=== PATIENT | female | born 1930 | race Two or more races ===

== ENCOUNTER 2018-05-23 11:10 | Inpatient (IN) | payer OTHER, MEDICAID ==
[~2018-05-23] VITALS: Ht 157.5 cm; Wt 65.3 kg
[2018-05-23] MEDS ORDERED: SODIUM CHLORIDE 0.9% 1,000 ML IV ONE ×2 (11:17)
[2018-05-23 12:34] LABS: Basophils # (auto) 0 uL; Basophils % (auto) 0.9 % (0.0-2.0); Eosinophils # (auto) 0.4 uL; Eosinophils % (auto) 6.9 % (0.0-7.0); Hematocrit 31.1 % (36.0-46.0); Hemoglobin 10.3 g/dL (12.2-16.2); Lymphocytes # (auto) 2.3 uL; Lymphocytes % (auto) 42.4 % (10.0-50.0); Mean Corpuscular Hemoglobin 33.4 pg (28.0-32.0); Mean Corpuscular Volume 101.3 fL (80.0-100.0); Monocytes # (auto) 0.6 uL; Neutrophils # (auto) 2.1 uL; Neutrophils % (auto) 38.8 % (37.0-80.0); Platelet Count (auto) 185 10^3/uL (140-450); Red Blood Cells 3.07 10^6/uL (4.0-5.20); Red Cell Distribution Width 18.3 % (11.8-14.3); White Blood Cell 5.4 10^3/uL (4.4-10.8)
[2018-05-23 12:53] LABS: Calcium 8.1 mg/dL (8.5-10.1); Potassium 3.9 mmol/L (3.5-5.1)
[2018-05-23 12:56] LABS: Partial Thromboplastin Time 26.6 sec (23.78-33.04); Prothrombin Time 10.7 sec (9.27-12.13)
[2018-05-23 12:58] LABS: BUN/Creatinine Ratio 31.4; Bilirubin, Total 0.6 mg/dL (0.2-1.0); Total Protein 6.3 g/dL (6.4-8.2)
[2018-05-23 13:21] LABS: Urine Bacteria NONE SEEN /hpf (None Seen); Urine Blood Negative /uL (Negative); Urine Mucus FEW (None Seen); Urine Specific Gravity 1.013 (1.001-1.035); Urine WBC 5 /hpf (0 - 5)
[2018-05-23] MEDS ORDERED: PANTOPRAZOLE 40 MG/10 ML VIAL IV ONE ×2 (14:00→14:45)
[2018-05-23] MEDS ORDERED: TEMAZEPAM 15 MG CAP PO PRN (14:45)
[2018-05-23] MEDS ORDERED: cefTRIAXone 1GM/50ML D5W 50 ML IV ONE (14:45)
[2018-05-23] MEDS ORDERED: LORazepam 0.5 MG TAB PO PRN (14:45)
[2018-05-23] MEDS ORDERED: HYDROcodone-ACET 5/325MG TAB PO PRN (14:45)
[2018-05-23] MEDS ORDERED: NITROGLYCERIN 0.4 MG SL TAB SL PRN (14:45)
[2018-05-23] MEDS ORDERED: MORPHINE SULFATE 4 MG/ML SYR/VIAL IV PRN ×2 (14:45)
[2018-05-23] MEDS ORDERED: ACETAMINOPHEN 500 MG TAB PO PRN (14:45)
[2018-05-23] MEDS ORDERED: PROMETHAZINE HCL 25 MG/ML 1ML IV PRN (14:45)
[2018-05-23] MEDS: SODIUM CHLORIDE 0.9% 1,000 ML IV SCH ×2 (15:46→22:36)
[2018-05-23] MEDS ORDERED: ALBUTEROL SULF 2.5 MG/0.5ML(0.5%) NEB SOLN NEB PRN (18:15)
[2018-05-23] MEDS: metroNIDAZOLE 500MG/100ML 100 ML IV SCH (18:18)
[2018-05-23 19:04] VITALS: BP 159/74
--- NOTE | 2018-05-23 20:00 | NUR ---
[facility] admit from [facility] to Tele[facility] unit after SBAR received. Patient oriented to Santa wheeler RN, unit, room, bed, and unit policies regarding patient care and visiting hours. Patient now on continuous telemetry monitoring, tele box # and telemetry reading on arrival to unit is SR83. Patient weighed by bedscale. PT very sleepy. pt eyes open but non verbal.
[2018-05-23 20:14] LABS: Hematocrit 28.9 % (36.0-46.0); Hemoglobin 9.8 g/dL (12.2-16.2)
[2018-05-23 22:00] VITALS: BP 161/71
[2018-05-23] MEDS: PANTOPRAZOLE 40 MG/10 ML VIAL IV SCH (22:57)
[2018-05-23] MEDS ORDERED: SUCR1TAB PO (23:07)
--- NOTE | 2018-05-23 23:10 | NUR ---
CODE ASSIST CALLED. PT NOT RESPONDING. DID SEVERAL STERNAL RUBS WITHOUT THE PT WAKING UP. PT BLOOD SUGAR WAS 109. PT PLACED ON 2L O2. VITAL SIGNS BP 182/146, HR 90, RR 18, TEMP 97.7, O2 99% MARBLE SUPERVISOR, LOAN AND CHIEF CUSTOMER OFFICER IMELDA ARE AWARE AND IN THE ROOM.
--- NOTE | 2018-05-23 23:17 | NUR ---
VITAL SIGNS TAKEN AGAIN. BP 196/62. HR 84, O2 100%, RR 21, TEMP 07.9 NEW ORDERS PER HOSPITALIST, D[place] HYDRALAZINE GIVEN. HEAD CT AND NEURO CONSULT ORDERED
--- NOTE | 2018-05-23 23:20 | NUR ---
PT DOWN TO CT.
[2018-05-23] MEDS: hydrALAZINE HCL 20 MG/ML VL IV PRN (23:23)
[2018-05-24] VITALS (7 sets, daily range): BP systolic 125–172; BP diastolic 48–97
[2018-05-24] MEDS: ALBUTEROL SULF 2.5 MG/0.5ML(0.5%) NEB SOLN NEB SCH ×5 (00:05→22:55)
[2018-05-24] MEDS: IPRATROPIUM BROM 0.5 MG/2.5ML INH SOL NEB SCH ×5 (00:05→22:55)
[2018-05-24] MEDS: metroNIDAZOLE 500MG/100ML 100 ML IV SCH ×5 (00:49→23:54)
[2018-05-24 01:03] LABS: Hematocrit 31.4 % (36.0-46.0); Hemoglobin 10.4 g/dL (12.2-16.2)
--- NOTE | 2018-05-24 01:05 | NUR ---
RADIOLOGY DO ARANZA CALLED PT HAS SMALL BLEED. CALLED AND NOTIFIED HOSPITALIST, STANISLAW, MAILROOM MESSENGER IMELDA, AND POLICE RADIO DISPATCHER, LOAN.
[2018-05-24] MEDS ORDERED: LISI-646 PO (01:20)
[2018-05-24] MEDS ORDERED: CETI10TA80 PO (01:20)
[2018-05-24] MEDS ORDERED: NAPR-476 PO (01:20)
[2018-05-24] MEDS ORDERED: OMEP20TA PO (01:20)
[2018-05-24] MEDS ORDERED: ASPI81TA27 PO (01:20)
[2018-05-24] MEDS ORDERED: ALEN1TAB32 PO (01:20)
[2018-05-24] MEDS ORDERED: FERR-20 PO (01:20)
--- NOTE | 2018-05-24 02:40 | NUR ---
PT VS BP 125/48, HR 94, RR 21, O2 100%. TEMP 98
--- NOTE | 2018-05-24 05:03 | NUR ---
TALKED TO HOSPITALISTSATNISLAW. PT IS ACCEPTED [facility] WITH [facility]. RED. BUT THERE IS NO BED. PT TO REMAIN ON FLOOR TELE. NOTIFIED EVALUATION ADVISORKELVIN.
[2018-05-24 05:42] LABS: Basophils # (auto) 0.1 uL; Eosinophils # (auto) 0.1 uL; Hemoglobin 9.8 g/dL (12.2-16.2); Lymphocytes # (auto) 1.6 uL; Monocytes # (auto) 0.8 uL; Monocytes % (auto) 12.4 % (0.0-12.0); Nucleated Red Blood Cells % 0.1 %
[2018-05-24 05:49] LABS: Eosinophils % (auto) 2.4 % (0.0-7.0); Hematocrit 29.9 % (36.0-46.0); Lymphocytes % (auto) 25.3 % (10.0-50.0); Mean Corpuscular Hemoglobin 33.9 pg (28.0-32.0); Mean Corpuscular Volume 102.9 fL (80.0-100.0); Neutrophils # (auto) 3.7 uL; Neutrophils % (auto) 58.9 % (37.0-80.0); Platelet Count (auto) 174 10^3/uL (140-450); Potassium 3.4 mmol/L (3.5-5.1); White Blood Cell 6.2 10^3/uL (4.4-10.8)
[2018-05-24 05:58] LABS: Albumin 2.6 g/dL (3.4-5.0); BUN/Creatinine Ratio 32.9; Bilirubin, Total 0.5 mg/dL (0.2-1.0); Calcium 7.7 mg/dL (8.5-10.1); Total Protein 5.5 g/dL (6.4-8.2)
[2018-05-24] MEDS: SODIUM CHLORIDE 0.9% 1,000 ML IV SCH ×4 (06:14→23:23)
--- NOTE | 2018-05-24 08:00 | NUR ---
RECEIVED PT RESTING IN BED, PT NOT OPENING HER EYES, PT IS MOANING AND MOVING TO TOUCH, FRAGA DRAINING TO GRAVITY, CALL LIGHT WITH IN REACH, BED ALARM ON, PT CLOSED TO THE NURSE STATION, WILL CONTINUE TO MONITOR PT.
[2018-05-24] MEDS: PANTOPRAZOLE 40 MG/10 ML VIAL IV SCH ×2 (08:59→23:13)
[2018-05-24] MEDS: cefTRIAXone 1GM/50ML D5W 50 ML IV SCH (08:59)
--- NOTE | 2018-05-24 09:22 | NUR ---
PAGED JEWEL BEARING DRILLER TO INFORM THAT THERE IS A CLEARING DISTRIBUTION CLERK CONSULT TO TRANSFER PT TO HIGHER LEVEL OF CARE, THAT PT WAS ACCE[facility] TO [facility] WITH [facility]. RED. BUT THERE IS NO BED. AWAITING CALL BACK.
--- NOTE | 2018-05-24 09:40 | NUR ---
RECEIVED CALL BACK FROM TAM/ YOGHURT MAKER, YOGHURT MAKER INFORMED ON THE B2B MANAGED SERVICE SALES EXEC CONSULT FOR PT TO BE TRANSFER TO HIGHER LEVEL OF CARE. TAM WILL FOLLOW UP ON THE TRANSFER.
--- NOTE | 2018-05-24 11:45 | NUR ---
PHONE CALL MADE TO [facility]... STILL AWAITING BED.
[2018-05-24] MEDS: hydrALAZINE HCL 20 MG/ML VL IV PRN (11:56)
--- NOTE | 2018-05-24 11:59 | NUR ---
DR. PADILLA / GI AT BED SIDE TO SEE PT. PT IS MORE ALERT, PT HAS SLURRED SPEECH, RESPONDING YES AND NO QUESTIONS,
--- NOTE | 2018-05-24 12:15 | NUR ---
DR. GAFFNEY AT BED SIDE TO SEE PT, EDWIN FROM [facility] CALLED AND SPOKE TO DR. GAFFNEY REGARDING PT'S TRANSFER.
--- NOTE | 2018-05-24 12:20 | NUR ---
CALLED AND SPOKE TO PERRY REY/PT'S FRIEND AND ACCOUNTS RECEIVABLE REPRESENTATIVE. PER PERRY THERE IS NO FAMILY CONTACT INFORMATION AVAILABLE, PT MOVED IN WITH PERRY WHEN PT WAS WELL, PERRY INFORMED THAT PT WILL BE TRANSFER TO [facility] SOON THERE IS A BED AVAILABLE.
--- NOTE | 2018-05-24 19:15 | NUR ---
Opening Shift Note Received report from sindi Mahan RN. Assumed care of patient, awake but lethargic and oriented to self only. No S/S of distress/SOB or pain. Instructed on POC and to call for assist PRN, will continue to monitor for changes Q1hr and PRN. Bed placed in lowest position, bed alarm turned on and call light within reach.
[2018-05-24] MEDS ORDERED: IOHEXOL 350 MG/ML 100ML IJ ONE (20:41)
--- NOTE | 2018-05-24 21:03 | NUR ---
Patient was taken to radiology for Head CT procedure.
--- NOTE | 2018-05-24 21:30 | NUR ---
Patient return to floor from Radiology.
[2018-05-24] MEDS: DONEPEZIL HYDROCHLORIDE 5 MG TAB PO SCH (23:13)
[2018-05-25 05:48] VITALS: BP 142/67
[2018-05-25] MEDS: metroNIDAZOLE 500MG/100ML 100 ML IV SCH ×3 (07:04→17:14)
[2018-05-25] MEDS: ALBUTEROL SULF 2.5 MG/0.5ML(0.5%) NEB SOLN NEB SCH ×3 (07:30→18:22)
[2018-05-25] MEDS: IPRATROPIUM BROM 0.5 MG/2.5ML INH SOL NEB SCH ×3 (07:30→18:22)
[2018-05-25] MEDS: SODIUM CHLORIDE 0.9% 1,000 ML IV SCH ×3 (07:43→11:59)
[2018-05-25 08:00] VITALS: BP 147/61
--- NOTE | 2018-05-25 08:00 | NUR ---
RECEIVED PT RESTING SITTING ON BED, CALL LIGHT WITHIN REACH, PT RECEIVING A BREATHING TREATMENT, PT FOLLOWING DIRECTIONS, PT IS AAO X 2, PT ANSWERING QUESTIONS, PT EDUCATED TO STAY IN BED, AND USE CALL LIGHT FOR HELP, BED ALARM ON, WILL CONTINUE TO MONITOR PT.
--- NOTE | 2018-05-25 09:43 | NUR ---
MACHINE CELL TUBER DR. Rick GAFFNEY
--- NOTE | 2018-05-25 09:45 | NUR ---
DR. GAFFNEY AT BED SIDE TO SEE PT,
--- NOTE | 2018-05-25 09:59 | NUR ---
CALLED AND SPOKE TO TAM/ PROGRAMMER ENGINEERING AND SCIENTIFIC PER DR. GAFFNEY'S REQUEST TO INFORM THAT PT'S PLAN OF CARE IS STILL TO TRANSFER TO [facility]. PROGRAMMER ENGINEERING AND SCIENTIFIC WILL CONTINUE TO WORK ON THE TRANSFER.
[2018-05-25] MEDS: PANTOPRAZOLE 40 MG/10 ML VIAL IV SCH ×2 (10:01→21:54)
[2018-05-25] MEDS: cefTRIAXone 1GM/50ML D5W 50 ML IV SCH (10:01)
[2018-05-25 12:00] VITALS: BP 136/55
[2018-05-25 17:00] VITALS: BP 162/64
[2018-05-25] MEDS: hydrALAZINE HCL 20 MG/ML VL IV PRN (17:15)
[2018-05-25 18:43] VITALS: BP 113/46
--- NOTE | 2018-05-25 19:10 | NUR ---
Opening Shift Note Received report from sindi Mahan RN. Assumed care of patient, awake and oriented to self and place. Caregiver friends at bedside, Terrie and Amanda. No S/S of distress/SOB or pain. Instructed on POC and to call for assist PRN, will continue to monitor for changes Q1hr and PRN. Bed placed in lowest position, bed alarm turned on and call light within reach. Patient is still waiting a bed from [facility].
--- NOTE | 2018-05-25 20:45 | NUR ---
LAURA FROM [facility] CALLED TO VERIFY PATIENT'S STATUS.
[2018-05-25] MEDS: DONEPEZIL HYDROCHLORIDE 5 MG TAB PO SCH (21:55)
[2018-05-25 22:03] VITALS: BP 125/51
--- NOTE | 2018-05-25 23:25 | NUR ---
RECEIVED A CALL FROM LAURA OF [facility] , STATES THAT A BED FOR PATIENT IS READY.
--- NOTE | 2018-05-25 23:41 | NUR ---
LAURA FROM [facility] STATES THAT PATIENT WILL BE GOING TO UN[address] ROOM 6 BED 1. RECEIVING MD IS LISSY BROOKS, NEURO SURGEON
[2018-05-26] MEDS: ALBUTEROL SULF 2.5 MG/0.5ML(0.5%) NEB SOLN NEB SCH (00:12)
[2018-05-26] MEDS: IPRATROPIUM BROM 0.5 MG/2.5ML INH SOL NEB SCH (00:12)
[2018-05-26] MEDS: metroNIDAZOLE 500MG/100ML 100 ML IV SCH (00:41)
--- NOTE | 2018-05-26 03:50 | NUR ---
JULIAN FROM [facility] CALLED AND STATES THAT EXPECTED TIME OF ARRIVAL IS 30 MIN.
[2018-05-26] MEDS: SODIUM CHLORIDE 0.9% 1,000 ML IV SCH (04:02)
--- NOTE | 2018-05-26 04:27 | NUR ---
REPORT GIVEN TO HERNÁN GEORGE RN
--- NOTE | 2018-05-26 04:35 | NUR ---
Pt being trans to another hosp Order obtained for transfer [place] to [facility]. Report called/given to HERNÁN GEORGE. Report given to EMS transport team. Medication reconciliation form completed and copy given to patient. Transported via [facility] along with copied chart and imaging films/disk and all personal belongings. No distress noted on time of departure. Family notified of destination and room number, verbalized understanding.
[2018-05-26 09:23] LABS: Folate (Folic Acid) 15.78 ng/mL (5.38-24)
== END 2018-05-26 04:35 | disposition short-term general hospital (02) | DRG 64 ==
LOC: ER 11:10 → EDBD 11:10 → TELE 14:49 → EAST 19:30 → TELE-CENTR 19:41
PROVIDERS: ADMIT Internal Medicine; ATTEND Internal Medicine
DX: I60.9 Nontraumatic subarachnoid hemorrhage, unspecified (principal); G93.41 Metabolic encephalopathy; K57.31 Diverticulosis of large intestine without perforation or abscess with bleeding; E87.0 Hyperosmolality and hypernatremia; E87.1 Hypo-osmolality and hyponatremia; F02.80 Dementia in other diseases classified elsewhere, unspecified severity, without behavioral disturbance, psychotic disturbance, mood disturbance, and anxiety; I10 Essential (primary) hypertension; J44.9 Chronic obstructive pulmonary disease, unspecified; D64.9 Anemia, unspecified; F17.200 Nicotine dependence, unspecified, uncomplicated; G30.9 Alzheimer's disease, unspecified; R73.9 Hyperglycemia, unspecified; N28.1 Cyst of kidney, acquired; Z79.899 Other long term (current) drug therapy
CPT/HCPCS: 36415; 36600; 51702; 70450; 70496; 71045; 74176; 76775; 80053; 81001; 82270; 82378; 82607; 82746; 82805; 82962; 83605; 83880; 84443; 84484; 85014; 85018; 85025; 85045; 85610; 85652; 85730; 86141; 86850; 86900; 86901; 87040; 93005; 94640; 96361; 96374; 96375; C9113; G0378; J0696; J3490

== ENCOUNTER 2019-08-20 20:00 | Inpatient (IN) | payer MEDICARE, MEDICAID ==
[~2019-08-20] VITALS: Ht 157.5 cm; Wt 62.6 kg
[~2019-08-20 20:00] MED LIST: ALEN1TAB32 PO; ASPI-404 PO; CETI10TA80 PO; FERR-20 PO; LISI-646 PO; NAPR-476 PO; OMEP20TA PO; SUCR1TAB PO
[2019-08-20 20:54] LABS: Basophils # (auto) 0.1 10 ^3/uL (0-0.2); Eosinophils # (auto) 0.5 10 ^3/uL (0-0.8); Eosinophils % (auto) 5.6 % (0.0-7.0); Hemoglobin 13.6 g/dL (12.2-16.2); Monocytes # (auto) 1.1 10 ^3/uL (0-1.3)
[2019-08-20 20:56] LABS: Basophils % (auto) 0.7 % (0.0-2.0); Lymphocytes # (auto) 2.3 10 ^3/uL (0.4-5.4); Lymphocytes % (auto) 26.9 % (10.0-50.0); Mean Corpuscular Hemoglobin 34.5 pg (28.0-32.0); Mean Corpuscular Volume 101.6 fL (80.0-100.0); Neutrophils # (auto) 4.6 10 ^3/uL (1.6-8.6); Neutrophils % (auto) 53.8 % (37.0-80.0); Platelet Count (auto) 245 10^3/uL (140-450); Red Blood Cells 3.93 10^6/uL (4.0-5.20); Red Cell Distribution Width 15.5 % (11.8-14.3); White Blood Cell 8.5 10^3/uL (4.4-10.8)
[2019-08-20] MEDS ORDERED: SODIUM CHLORIDE 0.9% 500 ML IV ONE (21:00)
[2019-08-20 21:11] LABS: Albumin 2.7 g/dL (3.4-5.0); Anion Gap 9 (5-15); Blood Urea Nitrogen 13 mg/dL (7-18); Calcium 8.5 mg/dL (8.5-10.1); Carbon Dioxide 21 mmol/L (21-32); Chloride 102 mmol/L (98-107); Glucose 142 mg/dL (74-106); Magnesium 2.4 mg/dL (1.6-2.6); Sodium 132 mmol/L (136-145)
[2019-08-20 21:17] LABS: Alanine Aminotransferase 42 U/L (13-56); Alkaline Phosphatase 612 U/L (45-117); Aspartate Aminotransferase 30 U/L (15-37); BUN/Creatinine Ratio 17.8; Bilirubin, Total 0.8 mg/dL (0.2-1.0); GFR African American 97 mL/min; GFR Non-African American 80 mL/min; Total Protein 6.7 g/dL (6.4-8.2)
[2019-08-20 22:43] LABS: Urine Bacteria NONE SEEN /hpf (None Seen); Urine Blood Negative /uL (Negative); Urine Specific Gravity 1.005 (1.001-1.035); Urine WBC <1 /hpf (0 - 5)
[2019-08-21] MEDS ORDERED: SODIUM CHLORIDE 0.9% 1,000 ML IV SCH (02:27)
[2019-08-21] MEDS ORDERED: HYDROcodone-ACET 5/325MG TAB PO PRN (02:30)
[2019-08-21] MEDS ORDERED: MORPHINE SULF INJ 2 MG/ML SYRINGE 1ML IV PRN (02:30)
[2019-08-21] MEDS ORDERED: DOCUSATE SOD 100 MG CAP PO PRN (02:30)
[2019-08-21] MEDS ORDERED: ONDANSETRON HCL 4 MG/2 ML VIAL IV PRN (02:30)
[2019-08-21] MEDS ORDERED: ACETAMINOPHEN 325 MG TAB PO PRN (02:30)
[2019-08-21 04:13] VITALS: BP 134/53
--- NOTE | 2019-08-21 04:24 | NUR ---
PT UNABLE TO CONFIRM LIST OF MEDICATIONS PROVIDED. PATIENT IS CONFUSED AT THIS TIME AND UNABLE TO CONFIRM LIST OF MEDICATIONS OR PHARMACY. HOOP MAKER HELPER MACHINE RN INFORMED.
[2019-08-21 04:30] VITALS: BP 131/58
[2019-08-21 09:00] VITALS: BP 132/67
[2019-08-21 09:00] LABS: Basophils # (auto) 0.1 10 ^3/uL (0-0.2); Basophils % (auto) 0.9 % (0.0-2.0); Eosinophils # (auto) 0.6 10 ^3/uL (0-0.8); Eosinophils % (auto) 7.3 % (0.0-7.0); Hematocrit 42.9 % (36.0-46.0); Hemoglobin 14.3 g/dL (12.2-16.2); Lymphocytes # (auto) 2.8 10 ^3/uL (0.4-5.4); Lymphocytes % (auto) 33.4 % (10.0-50.0); Mean Corpuscular Hemoglobin 34.1 pg (28.0-32.0); Mean Corpuscular Hgb Conc. 33.3 g/dL (32.0-36.0); Mean Corpuscular Volume 102.5 fL (80.0-100.0); Monocytes % (auto) 11.8 % (0.0-12.0); Neutrophils % (auto) 46.6 % (37.0-80.0); Nucleated Red Blood Cells % 0.1 %; Platelet Count (auto) 256 10^3/uL (140-450); Red Blood Cells 4.18 10^6/uL (4.0-5.20); Red Cell Distribution Width 16.2 % (11.8-14.3); White Blood Cell 8.5 10^3/uL (4.4-10.8)
[2019-08-21 09:08] LABS: BUN/Creatinine Ratio 16.4; Calcium 8.5 mg/dL (8.5-10.1); Potassium 3.7 mmol/L (3.5-5.1)
--- NOTE | 2019-08-21 12:07 | NUR ---
Per Dr. Arauz d/c lori, noted and carried it out.
--- NOTE | 2019-08-21 12:08 | NUR ---
Left a message to Kamilla (caregiver) regarding pt d/c today. Awaiting to call back.
--- NOTE | 2019-08-21 12:13 | NUR ---
Sandoval catheter dc'd Order to discontinue sandoval catheter. Sandoval dc'd with clean technique following deflation of balloon. Patient tolerated well with no complaints of pain. Continue care.
--- NOTE | 2019-08-21 12:15 | NUR ---
Kamilla -caregiver called back, made aware of patient is going home and she can come to picker and sorter load and unload after patient urinate.
[2019-08-21 14:00] VITALS: BP 135/65
[2019-08-21 14:09] VITALS: BP 135/65
--- NOTE | 2019-08-21 16:54 | NUR ---
Per Dr. Arauz , patient can go home even though she still not urinate yet.
[2019-08-21 17:00] VITALS: BP 149/65
--- NOTE | 2019-08-21 17:22 | NUR ---
Patient urinated about 400 ml of clear yellow urine.
--- NOTE | 2019-08-21 17:24 | NUR ---
Left a message to Kamilla (caregiver) regarding patient is ready to go home. She can pick her up any time.
--- NOTE | 2019-08-21 18:13 | NUR ---
Kamilla -caregiver called back, will pick her up soon.
--- NOTE | 2019-08-21 18:30 | NUR ---
Discharge instructions given as ordered. Encourage to follow up with PMD (Patient has no PCP. Daiana Coello RN coordinator card given to patient. Discharge instructed given to Kamilla -Caregiver. ) as instructed. All questions and concerns addressed. Patient verbalized understanding. Medication reconciliation form completed and copy given to patient. IV removed with catheter intact, pressure dressing applied, sandoval catheter removed. Patient taken to vehicle via wheelchair with all personal belongings, accompanied by staff and family member. No distress noted at time of departure.
== END 2019-08-21 18:30 | disposition home or self-care (01) | DRG 204 ==
LOC: EDBD 20:00 → ER 20:05 → OVERFLOW 20:06 → CENTRAL 08-21 05:25
PROVIDERS: ADMIT Hospitalist; ATTEND Family Medicine
DX: R06.02 Shortness of breath (principal); F02.80 Dementia in other diseases classified elsewhere, unspecified severity, without behavioral disturbance, psychotic disturbance, mood disturbance, and anxiety; G30.8 Other Alzheimer's disease; I10 Essential (primary) hypertension; Z03.818 Encounter for observation for suspected exposure to other biological agents ruled out; Z79.899 Other long term (current) drug therapy; Z79.82 Long term (current) use of aspirin
CPT/HCPCS: 36415; 36600; 70450; 71045; 80048; 80053; 81001; 82805; 83036; 83735; 83880; 84484; 85025; 86141; 87040; 87070; 87086; 87804; 87880; 93005; G0378

== ENCOUNTER → 2019-09-02 | Emergency (ER) | payer MEDICARE, MEDICAID ==
[~2019-09-02] VITALS: Ht 149.9 cm; Wt 72.6 kg
[~2019-09-02] MED LIST changes: +SODIUM CHLORIDE 0.9% 1,000 ML IV ONE; +cefTRIAXone 1GM/50ML D5W 50 ML IV ONE
[2019-09-03 00:01] LABS: Basophils # (auto) 0.1 10 ^3/uL (0-0.2); Basophils % (auto) 1.5 % (0.0-2.0); Eosinophils # (auto) 0.4 10 ^3/uL (0-0.8); Eosinophils % (auto) 4.6 % (0.0-7.0); Hematocrit 41.2 % (36.0-46.0); Hemoglobin 13.6 g/dL (12.2-16.2); Lymphocytes # (auto) 2.4 10 ^3/uL (0.4-5.4); Lymphocytes % (auto) 25.6 % (10.0-50.0); Mean Corpuscular Hemoglobin 34.1 pg (28.0-32.0); Mean Corpuscular Hgb Conc. 33.1 g/dL (32.0-36.0); Mean Corpuscular Volume 103.1 fL (80.0-100.0); Monocytes # (auto) 1.3 10 ^3/uL (0-1.3); Monocytes % (auto) 13.7 % (0.0-12.0); Neutrophils # (auto) 5.2 10 ^3/uL (1.6-8.6); Neutrophils % (auto) 54.6 % (37.0-80.0); Platelet Count (auto) 238 10^3/uL (140-450); Red Blood Cells 3.99 10^6/uL (4.0-5.20); Red Cell Distribution Width 15.8 % (11.8-14.3); White Blood Cell 9.5 10^3/uL (4.4-10.8)
[2019-09-03 00:20] LABS: Albumin 2.6 g/dL (3.4-5.0); Anion Gap 7 (5-15); BUN/Creatinine Ratio 16.2; Blood Urea Nitrogen 11 mg/dL (7-18); Calcium 8.4 mg/dL (8.5-10.1); Carbon Dioxide 24 mmol/L (21-32); Chloride 108 mmol/L (98-107); GFR African American 105 mL/min; GFR Non-African American 87 mL/min; Glucose 131 mg/dL (74-106); Magnesium 2.4 mg/dL (1.6-2.6); Sodium 139 mmol/L (136-145)
[2019-09-03 00:22] LABS: Lactic Acid w/Reflex 2.3 mmol/L (0.4-2.0)
[2019-09-03 00:25] LABS: Alanine Aminotransferase 41 U/L (13-56); Alkaline Phosphatase 554 U/L (45-117); Aspartate Aminotransferase 31 U/L (15-37); Bilirubin, Total 0.7 mg/dL (0.2-1.0); Total Protein 6.9 g/dL (6.4-8.2)
[2019-09-03 00:56] LABS: Urine Bacteria MANY /hpf (None Seen); Urine Blood Negative /uL (Negative); Urine Mucus MODERATE (None Seen); Urine WBC 13 /hpf (0 - 5)
[2019-09-03 07:32] VITALS: BP 136/59
== END | disposition home or self-care (01) ==
LOC: ER 22:35
DX: R53.83 Other fatigue (principal); I10 Essential (primary) hypertension
CPT/HCPCS: 36415; 70450; 80053; 81001; 83605; 83735; 83880; 84484; 85025; 87040; 93005; 99285; J7040; J0696

== ENCOUNTER 2019-10-10 23:05 | Emergency (ER) | payer MEDICARE, MEDICAID ==
[~2019-10-10] VITALS: Ht 147.3 cm; Wt 58.1 kg
[~2019-10-10 23:05] MED LIST changes: -ASPI-404 PO; +ASPI-543 PO; -SODIUM CHLORIDE 0.9% 1,000 ML IV ONE; -cefTRIAXone 1GM/50ML D5W 50 ML IV ONE
[2019-10-11 01:09] LABS: Basophils # (auto) 0 10 ^3/uL (0-0.2); Basophils % (auto) 0.4 % (0.0-2.0); Eosinophils # (auto) 0.2 10 ^3/uL (0-0.8); Eosinophils % (auto) 1.8 % (0.0-7.0); Hematocrit 39.6 % (36.0-46.0); Hemoglobin 13.2 g/dL (12.2-16.2); Lymphocytes # (auto) 3.1 10 ^3/uL (0.4-5.4); Lymphocytes % (auto) 32.7 % (10.0-50.0); Mean Corpuscular Hemoglobin 33.7 pg (28.0-32.0); Mean Corpuscular Hgb Conc. 33.4 g/dL (32.0-36.0); Mean Corpuscular Volume 100.7 fL (80.0-100.0); Monocytes # (auto) 1.5 10 ^3/uL (0-1.3); Monocytes % (auto) 16.1 % (0.0-12.0); Neutrophils # (auto) 4.6 10 ^3/uL (1.6-8.6); Nucleated Red Blood Cells % 0.1 %; Platelet Count (auto) 186 10^3/uL (140-450); Red Blood Cells 3.93 10^6/uL (4.0-5.20); Red Cell Distribution Width 16.6 % (11.8-14.3); White Blood Cell 9.4 10^3/uL (4.4-10.8)
[2019-10-11 01:56] LABS: Albumin 2.3 g/dL (3.4-5.0); BUN/Creatinine Ratio 15.3; Calcium 8.4 mg/dL (8.5-10.1); Magnesium 2.3 mg/dL (1.6-2.6); Potassium 4.1 mmol/L (3.5-5.1)
[2019-10-11 01:58] LABS: Bilirubin, Total 0.6 mg/dL (0.2-1.0); Total Protein 6.5 g/dL (6.4-8.2)
[2019-10-11 02:25] LABS: CRP High Sensitivity 6.1 mg/dL (< 0.3)
[2019-10-11] MEDS ORDERED: SODIUM CHLORIDE 0.9% 500 ML IV ONE (02:30)
[2019-10-11] MEDS ORDERED: IOHEXOL 350 MG/ML 100ML IJ ONE ×5 (03:13→03:16)
[2019-10-11] MEDS ORDERED: IOHEXOL 300 MG/ML 100ML BOTTLE IJ ONE (03:16)
[2019-10-11 05:39] LABS: Urine Bacteria FEW /hpf (None Seen); Urine Blood Negative /uL (Negative); Urine Hyaline Cast FEW /lpf (0 - 2); Urine Specific Gravity 1.009 (1.001-1.035); Urine WBC <1 /hpf (0 - 5)
[2019-10-11 08:00] VITALS: BP 129/48
== END 2019-10-11 10:12 | disposition home or self-care (01) ==
LOC: ER 23:05
DX: U07.1 COVID-19 (principal); F03.90 Unspecified dementia, unspecified severity, without behavioral disturbance, psychotic disturbance, mood disturbance, and anxiety; I10 Essential (primary) hypertension; R41.82 Altered mental status, unspecified
CPT/HCPCS: 36415; 71045; 71275; 80053; 81001; 82728; 83605; 83615; 83735; 84443; 85025; 85379; 86141; 87070; 87804; 87880; 96360; 96361; 99285; C9803; Q9967; U0003; 93005